=== PATIENT | male | born 1945 | race African-American/Black ===

== ENCOUNTER 2018-05-20 12:42 | Observation (INO) ==
--- NOTE | 2018-05-20 14:02 | ED ---
HPI General Chief complaint: Psychiatric Symptoms Stated complaint: Psych eval / [facility]O / [facility] transport Time Seen by Provider: 05/20/18 13:54 History of Present Illness HPI narrative: This is a 72-year-old male with reported history of seizures, CHF , CVA, diabetes, presents under a Silva act initiated by the police department. The patient reports that his in March. Since then he has been having trouble coping with this. He has been having depression. He feels that he has no other talk to. Today he called the crisis hotline through his insurance company and he was eventually placed under Silva act. The patient is denying any specific suicidal ideation however according to the Silva act plan he said something about having thoughts of jumping into a pool or jumping in front of a car. Symptoms are moderate, duration 2 months, aggravated by the of his . Denies drug or alcohol use. He has no other complaints at this time. Related Data Home Medications Medication Instructions Recorded Confirmed alprazolam [Xanax] 0.25 mg PO TID PRN 05/20/18 05/20/18 atorvastatin [Lipitor] 40 mg PO QPM 05/20/18 05/20/18 bupropion HCl [Wellbutrin XL] 150 mg PO QAM 05/20/18 05/20/18 buspirone 7.5 mg PO TID 05/20/18 05/20/18 gabapentin 300 mg PO HS 05/20/18 05/20/18 insulin detemir U-100 [Levemir 17 unit SUBCUT BID 05/20/18 05/20/18 FlexTouch U-100 Insuln] metoprolol tartrate 25 mg PO BID 05/20/18 05/20/18 pantoprazole 40 mg PO DAILY 05/20/18 05/20/18 phenytoin [Dilantin Infatabs] 100 mg PO TID 05/20/18 05/20/18 sitagliptin [Januvia] 100 mg PO DAILY 05/20/18 05/20/18 tizanidine 4 mg PO TID 05/20/18 05/20/18 Allergies Allergy/AdvReac Type Severity Reaction Status Date / Time No Known Allergies Allergy Verified 05/20/18 12:52 Review of Systems ROS: all other systems reviewed are negative [facility]LY [facility], [facility] Medical History Medical History CHF (congestive heart failure) (Acute) COPD (chronic obstructive pulmonary disease) (Acute) CVA (cerebral vascular accident) (Acute) Diabetes (Acute) Esophageal stricture (Acute) Hypertension (Acute) Myocardial infarction (Acute) Seizure disorder (Acute) Surgical History Surgical History History of appendectomy (Acute) Hx of hand surgery (Acute) Social History Social History Smoking Status: Never smoker How Often Do You Have a Drink Containing Alcohol: Never Recent Travel in [facility] within the Last 8 Weeks: No Recent Out of Country Travel within the Last 8 Weeks: No Exam Narrative Exam Narrative: GENERAL: Well-developed well-nourished male in no acute distress SKIN: Warm and dry. HEAD: Atraumatic. Normocephalic. EYES: Pupils equal and round. No scleral icterus. No injection or drainage. ENT: No nasal bleeding or discharge. Mucous membranes pink and moist. NECK: Trachea midline. No JVD. CARDIOVASCULAR: Regular rate and rhythm. No murmur appreciated. RESPIRATORY: No accessory muscle use. Clear to auscultation. Breath sounds equal bilaterally. GASTROINTESTINAL: Abdomen soft, non-tender, nondistended. Hepatic and splenic margins not palpable. MUSCULOSKELETAL: No obvious deformities. No clubbing. No cyanosis. No edema. NEUROLOGICAL: Awake and alert. No obvious cranial nerve deficits. Motor grossly within normal limits. Normal speech. PSYCHIATRIC: depressed mood Course Initial Documented Vital Signs Temperature 98.2 F 05/20/18 12:53 Pulse Rate 80 05/20/18 12:53 Respiratory Rate 18 05/20/18 12:53 Blood Pressure 144/82 H 05/20/18 12:53 Pulse Oximetry 97 05/20/18 12:53 Last Documented Vital Signs Temperature 98.2 F 05/20/18 12:53 Pulse Rate 76 05/20/18 14:08 Respiratory Rate 18 05/20/18 14:08 Blood Pressure 130/76 05/20/18 14:08 Pulse Oximetry 98 05/20/18 14:08 Medical Decision Making [facility] Narrative Medical decision making narrative: This is a 72-year-old male who presents under Silva act for evaluation of depression and suicidal thoughts. Mental health screening discussed with the patient. Psychiatric screen ordered. Lab work is been reviewed. The Dilantin level is elevated at 31.0. The patient reports that his primary care physician Dr. Paige recently increased his Dilantin level from 200 mg a day to 300 mg a day. He took 300 mg this morning. He denies any ingestion and a self-harm attempt. Dilantin level will be rechecked in 4 hours. The repeat Dilantin level has trended up to 36. Therefore poison control will be notified by nursing staff, an EKG was ordered, the patient was admitted to the hospitalist for observation. Medical Screen Exam Complete: Yes Emergency Medical Condition: Yes Differential Diagnosis Differential Diagnosis: Major depressive disorder, adjustment reaction, acute psychosis, depressive disorder not otherwise specified Lab Data Result diagrams: 05/20/18 13:10 05/20/18 13:10 Lab Results 05/20/18 05/20/18 05/20/18 Range/Units 13:10 13:10 13:10 WBC 8.9 (4.0-11.0) th/mm3 RBC 4.66 (4.50-5.90) mil/mm3 Hgb 13.9 (13.0-17.0) gm/dL Hct 42.4 (39.0-51.0) % MCV 90.9 (80.0-100.0) fL MCH 29.8 (27.0-34.0) pg MCHC 32.8 (32.0-36.0) % RDW 14.5 (11.6-17.2) % Plt Count 270 (150-450) th/mm3 MPV 7.3 (7.0-11.0) fL Neut % (Auto) 60.8 (16.0-70.0) % Lymph % (Auto) 28.6 (9.0-44.0) % Early % (Auto) 8.4 H (0.0-8.0) % Eos % (Auto) 1.9 (0.0-4.0) % Baso % (Auto) 0.3 (0.0-2.0) % Neut # (Auto) 5.4 (1.8-7.7) th/mm3 Lymph # (Auto) 2.5 (1.0-4.8) th/mm3 Early # (Auto) 0.7 (0.0-0.9) th/mm3 Eos # (Auto) 0.2 (0.0-0.4) th/mm3 Baso # (Auto) 0.0 (0.0-0.2) th/mm3 WBC Differential . Differential Comment Auto diff final PT 10.7 (9.8-11.6) sec INR 1.1 Ratio Sodium 136 (136-145) meq/L Potassium 5.1 (3.5-5.1) meq/L Chloride 101 (98-107) meq/L Carbon Dioxide 27.8 (21.0-32.0) meq/L Anion Gap 7 (5-15) meq/L BUN 19 H (7-18) mg/dL Creatinine 1.15 (0.60-1.30) mg/dL Estimated GFR 62 L (>89) mL/min Random Glucose 161 H (74-106) mg/dL Calcium 9.5 (8.5-10.1) mg/dL Magnesium 2.0 (1.5-2.5) mg/dL Total Bilirubin 0.3 (0.2-1.0) mg/dL AST 23 (15-37) U/L ALT 31 (12-78) U/L Alkaline Phosphatase 298 H (45-117) U/L Total Protein 8.8 H (6.4-8.2) g/dL Albumin 3.9 (3.4-5.0) g/dL TSH 1.090 (0.358-3.740) uIU/mL Salicylates (2.8-20.0) mg/dL Urine Opiates Screen (Neg) Acetaminophen (10.0-30.0) mcg/mL Ur Barbiturates Screen (Neg) Phenytoin 31.0 H* (10.0-20.0) mcg/mL Ur Amphetamines Screen (Neg) U Benzodiazepines Scrn (Neg) Urine Cocaine Screen (Neg) U Cannabinoids Screen (Neg) Serum Alcohol Less than 3 (0-5) mg/dL 05/20/18 05/20/18 05/20/18 Range/Units 13:10 13:10 13:40 WBC (4.0-11.0) th/mm3 RBC (4.50-5.90) mil/mm3 Hgb (13.0-17.0) gm/dL Hct (39.0-51.0) % MCV (80.0-100.0) fL MCH (27.0-34.0) pg MCHC (32.0-36.0) % RDW (11.6-17.2) % Plt Count (150-450) th/mm3 MPV (7.0-11.0) fL Neut % (Auto) (16.0-70.0) % Lymph % (Auto) (9.0-44.0) % Early % (Auto) (0.0-8.0) % Eos % (Auto) (0.0-4.0) % Baso % (Auto) (0.0-2.0) % Neut # (Auto) (1.8-7.7) th/mm3 Lymph # (Auto) (1.0-4.8) th/mm3 Early # (Auto) (0.0-0.9) th/mm3 Eos # (Auto) (0.0-0.4) th/mm3 Baso # (Auto) (0.0-0.2) th/mm3 WBC Differential Differential Comment PT (9.8-11.6) sec INR Ratio Sodium (136-145) meq/L Potassium (3.5-5.1) meq/L Chloride (98-107) meq/L Carbon Dioxide (21.0-32.0) meq/L Anion Gap (5-15) meq/L BUN (7-18) mg/dL Creatinine (0.60-1.30) mg/dL Estimated GFR (>89) mL/min Random Glucose (74-106) mg/dL Calcium (8.5-10.1) mg/dL Magnesium (1.5-2.5) mg/dL Total Bilirubin (0.2-1.0) mg/dL AST (15-37) U/L ALT (12-78) U/L Alkaline Phosphatase (45-117) U/L Total Protein (6.4-8.2) g/dL Albumin (3.4-5.0) g/dL TSH (0.358-3.740) uIU/mL Salicylates Less than 1.7 L (2.8-20.0) mg/dL Urine Opiates Screen Neg (Neg) Acetaminophen Less than 2.0 L (10.0-30.0) mcg/mL Ur Barbiturates Screen Neg (Neg) Phenytoin (10.0-20.0) mcg/mL Ur Amphetamines Screen Neg (Neg) U Benzodiazepines Scrn Neg (Neg) Urine Cocaine Screen Neg (Neg) U Cannabinoids Screen Neg (Neg) Serum Alcohol (0-5) mg/dL 05/20/18 Range/Units 17:47 WBC (4.0-11.0) th/mm3 RBC (4.50-5.90) mil/mm3 Hgb (13.0-17.0) gm/dL Hct (39.0-51.0) % MCV (80.0-100.0) fL MCH (27.0-34.0) pg MCHC (32.0-36.0) % RDW (11.6-17.2) % Plt Count (150-450) th/mm3 MPV (7.0-11.0) fL Neut % (Auto) (16.0-70.0) % Lymph % (Auto) (9.0-44.0) % Early % (Auto) (0.0-8.0) % Eos % (Auto) (0.0-4.0) % Baso % (Auto) (0.0-2.0) % Neut # (Auto) (1.8-7.7) th/mm3 Lymph # (Auto) (1.0-4.8) th/mm3 Early # (Auto) (0.0-0.9) th/mm3 Eos # (Auto) (0.0-0.4) th/mm3 Baso # (Auto) (0.0-0.2) th/mm3 WBC Differential Differential Comment PT (9.8-11.6) sec INR Ratio Sodium (136-145) meq/L Potassium (3.5-5.1) meq/L Chloride (98-107) meq/L Carbon Dioxide (21.0-32.0) meq/L Anion Gap (5-15) meq/L BUN (7-18) mg/dL Creatinine (0.60-1.30) mg/dL Estimated GFR (>89) mL/min Random Glucose (74-106) mg/dL Calcium (8.5-10.1) mg/dL Magnesium (1.5-2.5) mg/dL Total Bilirubin (0.2-1.0) mg/dL AST (15-37) U/L ALT (12-78) U/L Alkaline Phosphatase (45-117) U/L Total Protein (6.4-8.2) g/dL Albumin (3.4-5.0) g/dL TSH (0.358-3.740) uIU/mL Salicylates (2.8-20.0) mg/dL Urine Opiates Screen (Neg) Acetaminophen (10.0-30.0) mcg/mL Ur Barbiturates Screen (Neg) Phenytoin 36.5 H* (10.0-20.0) mcg/mL Ur Amphetamines Screen (Neg) U Benzodiazepines Scrn (Neg) Urine Cocaine Screen (Neg) U Cannabinoids Screen (Neg) Serum Alcohol (0-5) mg/dL Discharge Plan Discharge Disposition Patient Disposition: ED Admit(ED Internal Use Only) Discharge Condition Condition: Stable Discharge Order Discharge Orders: ED Use Only Admit Order (Routine); Ordered 05/20/18 Ordered By: Dariusz Beckford Discharge Details Diagnosis: Dilantin toxicity Physicians Team ED Provider: Dee Dee Yates ED Midlevel Provider: Dariusz Beckford Primary Care Provider: UNKNOWN, Rxs /Orders / Referrals /Forms Prescriptions: No Action atorvastatin [Lipitor] 40 mg Tablet 40 mg PO QPM RF: 0 tizanidine 4 mg Tablet 4 mg PO TID RF: 0 phenytoin [Dilantin Infatabs] 50 mg Tablet,Chewable 100 mg PO TID RF: 0 alprazolam [Xanax] 0.25 mg Tablet 0.25 mg PO TID PRN (Reason: Anxiety) RF: 0 pantoprazole 40 mg Tablet,Delayed Release (Dr/Ec) 40 mg PO DAILY RF: 0 gabapentin 300 mg Capsule 300 mg PO HS RF: 0 buspirone 7.5 mg Tablet 7.5 mg PO TID RF: 0 bupropion HCl [Wellbutrin XL] 150 mg Tablet Extended Release 24 Hr 150 mg PO QAM RF: 0 metoprolol tartrate 25 mg Tablet 25 mg PO BID RF: 0 insulin detemir U-100 [Levemir FlexTouch U-100 Insuln] 100 unit/mL (3 mL) Insulin Pen 17 unit SUBCUT BID RF: 0 sitagliptin [Januvia] 100 mg Tablet 100 mg PO DAILY RF: 0 Discharge Interventions Interventions: Vital Signs Last Done: 05/20/18 14:08 Status ED Status: With Doctor
[2018-05-20 14:19] LABS: Baso % (Auto) 0.3 % (0.0-2.0); Eos # (Auto) 0.2 th/mm3 (0.0-0.4); Eos % (Auto) 1.9 % (0.0-4.0); Hematocrit 42.4 % (39.0-51.0); Hemoglobin 13.9 gm/dL (13.0-17.0); Lymph # (Auto) 2.5 th/mm3 (1.0-4.8); Lymph % (Auto) 28.6 % (9.0-44.0); Mean Corpuscular HGB Conc 32.8 % (32.0-36.0); Mean Corpuscular Hemoglobin 29.8 pg (27.0-34.0); Mean Corpuscular Volume 90.9 fL (80.0-100.0); Mean Platelet Volume 7.3 fL (7.0-11.0); Mono # (Auto) 0.7 th/mm3 (0.0-0.9); Mono % (Auto) 8.4 % (0.0-8.0); Neut # (Auto) 5.4 th/mm3 (1.8-7.7); Neut % (Auto) 60.8 % (16.0-70.0); Platelet Count 270 th/mm3 (150-450); Red Blood Count 4.66 mil/mm3 (4.50-5.90); Red Cell Distribution Width 14.5 % (11.6-17.2); White Blood Count 8.9 th/mm3 (4.0-11.0)
[2018-05-20 14:27] LABS: INR 1.1 Ratio; Prothrombin Time 10.7 sec (9.8-11.6)
[2018-05-20 14:39] LABS: Alanine Aminotransferase 31 U/L (12-78); Albumin 3.9 g/dL (3.4-5.0); Anion Gap 7 meq/L (5-15); Aspartate Aminotransferase 23 U/L (15-37); Blood Urea Nitrogen 19 mg/dL (7-18); Calcium 9.5 mg/dL (8.5-10.1); Carbon Dioxide 27.8 meq/L (21.0-32.0); Chloride 101 meq/L (98-107); Glomerular Filtration Rate 62 mL/min (>89); Glucose,Random 161 mg/dL (74-106); Potassium 5.1 meq/L (3.5-5.1); Sodium 136 meq/L (136-145)
[2018-05-20 14:45] LABS: Amphetamine Screen,Urine Neg (Neg); Barbiturate Screen,Urine Neg (Neg); Cannabinoid Screen,Urine Neg (Neg); Cocaine Screen,Urine Neg (Neg)
[2018-05-20 14:48] LABS: Alkaline Phosphatase 298 U/L (45-117); Total Protein 8.8 g/dL (6.4-8.2)
[2018-05-20 14:52] LABS: Opiate Screen,Urine Neg (Neg)
[2018-05-20] MEDS ORDERED: Sodium Chloride 0.9% 2 ML Flush PRN IV.FLUSH (18:44)
[2018-05-20] MEDS: Sod Chloride 0.9% Inj 1,000 ML IV.CONT SCH (20:02)
[2018-05-20] MEDS ORDERED: Dextrose 50% in Water 50 ML Vial IV.PUSH PRN (20:28)
--- NOTE | 2018-05-20 20:36 | P.HPIM ---
History of Present Illness Primary Care Physician: UNKNOWN 72-year-old male with a past medical history significant for seizure disorder on Dilantin, diabetes mellitus, hypertension, congestive heart failure, coronary artery disease, hyperlipidemia and history of CVA presents to the emergency department under Silva act for the evaluation of suicidal ideation. The patient reports that earlier today he was feeling depressed and called the crisis line telling them that he wanted to jump in front of a truck. He reports that his recently and he has been struggling with depression since that time. He also states that he takes Dilantin 3 times a day and recently his primary care provider increased him from 200-300 mg 3 times daily. His Dilantin level is currently elevated. He denies any intentional overdose. No chest pain or shortness of breath. No abdominal pain. No nausea/ vomiting/diarrhea. No fever/chills. No focal neurologic deficits. Review of Systems Review of Systems: all other systems reviewed are negative [facility] Medical History Medical History CHF (congestive heart failure) (Acute) COPD (chronic obstructive pulmonary disease) (Acute) CVA (cerebral vascular accident) (Acute) Diabetes (Acute) Esophageal stricture (Acute) Hyperlipidemia (Acute) Hypertension (Acute) Myocardial infarction (Acute) Seizure disorder (Acute) Surgical History Surgical History History of appendectomy (Acute) History of cardiac catheterization (Acute) Hx of hand surgery (Acute) Family History Family History Other Diabetes mellitus Social History Social History Smoking Status: Never smoker How Often Do You Have a Drink Containing Alcohol: Never Recent Travel in [facility] within the Last 8 Weeks: No Recent Out of Country Travel within the Last 8 Weeks: No Immunization History Tetanus Immunization: Unsure Medications and Allergies Allergies Allergy/AdvReac Type Severity Reaction Status Date / Time No Known Allergies Allergy Verified 05/20/18 12:52 Home Medications Medication Instructions Recorded Confirmed Type alprazolam [Xanax] 0.25 mg PO TID PRN 05/20/18 05/20/18 History atorvastatin [Lipitor] 40 mg PO QPM 05/20/18 05/20/18 History bupropion HCl [Wellbutrin XL] 150 mg PO QAM 05/20/18 05/20/18 History buspirone 7.5 mg PO TID 05/20/18 05/20/18 History gabapentin 300 mg PO HS 05/20/18 05/20/18 History insulin detemir U-100 [Levemir 17 unit SUBCUT BID 05/20/18 05/20/18 History FlexTouch U-100 Insuln] metoprolol tartrate 25 mg PO BID 05/20/18 05/20/18 History pantoprazole 40 mg PO DAILY 05/20/18 05/20/18 History phenytoin [Dilantin Infatabs] 100 mg PO TID 05/20/18 05/20/18 History sitagliptin [Januvia] 100 mg PO DAILY 05/20/18 05/20/18 History tizanidine 4 mg PO TID 05/20/18 05/20/18 History Active Medications: Active Medications Atorvastatin Calcium (Lipitor) 40 mg PO QPM [facility] Bupropion HCl (Wellbutrin Xl) 150 mg PO QAM [facility] Dextrose (D50w Vial) 50 ml IV.PUSH UNSCH PRN PRN Reason: PER HYPOGLYCEMIA PROTOCOL Gabapentin (Neurontin) 300 mg PO HS [facility] Glucagon (Glucagon Inj) 1 mg OTHER PRN PRN PRN Reason: for Hypoglycemia Protocol Sodium Chloride (Ns Inj) 1,000 mls @ 100 mls/hr IV.CONT .Q10H [facility] Last Admin: 05/20/18 20:02 Dose: 100 mls/hr Insulin Aspart (Novolog Insulin Correctional Sugar Inj) 0 unit SQ ACHS AND 3AM [facility]; Protocol Metoprolol Tartrate (Lopressor) 25 mg PO BID [facility] Non-Formulary Medication (Buspirone [Buspirone]) 7.5 mg PO TID [facility] Non-Formulary Medication (Insulin Detemir U-100 [Levemir Flextouch U-100 Insuln] ) 17 unit SQ BID [facility] Pantoprazole Sodium (Protonix) 40 mg PO DAILY [facility] Sodium Chloride (Ns Flush) 2 ml IV.FLUSH BID [facility] Sodium Chloride (Ns Flush) 2 ml IV.FLUSH PRN PRN PRN Reason: FLUSH AFTER USING IV ACCESS Physical Exam Vital signs: Vital Signs 05/20/18 12:53 05/20/18 14:08 05/20/18 19:42 Temperature 98.2 F Pulse Rate 80 76 69 Respiratory Rate 18 18 18 Blood Pressure 144/82 H 130/76 157/107 H Pulse Oximetry 97 98 99 Intake & Output 05/20/18 05/20/18 05/21/18 06:59 18:59 06:59 Weight 74.843 kg Narrative: Gen.: No acute distress Head: Normocephalic. Atraumatic. EENT: Pupils equal round and reactive to light. Nose without drainage. Airway intact. Throat without injection. Cardiovascular: Regular rate and rhythm. No murmurs, rubs or gallops. Respiratory: Lungs clear to auscultation bilaterally. No wheezes or rhonchi. Abdomen: Soft, nontender, nondistended. No peritoneal signs. Musculoskeletal: No gross deformities. No edema. Skin: No obvious rashes or erythema. Neuro: Sensory and motor grossly intact. Cranial nerves II through XII grossly intact. Psych: Endorses depression but denies any suicidal/homicidal ideation at this time Results Labs CBC & Chem 7: 05/20/18 13:10 05/20/18 13:10 Caprini VTE Risk Assessment Caprini VTE Risk Assessment: Moderate/High Risk (score >= 2) Caprini Risk Assessment Model: Point Value = 1 Point Value = 2 Point Value = 3 Point Value = 5 Age 41-60 Minor surgery BMI > 25 kg/m2 Swollen legs Varicose veins or History of unexplained or recurrent spontaneous Oral contraceptives or hormone replacement Sepsis (< 1 month) Serious lung disease, including pneumonia (< 1 month) Abnormal pulmonary function Acute myocardial infarction Congestive heart failure (< 1 month) History of inflammatory bowel disease Medical patient at bed rest Age 61-74 Arthroscopic surgery Major open surgery (> 45 min) Laparoscopic surgery (> 45 min) Malignancy Confined to bed (> 72 hours) Immobilizing plaster cast Central venous access Age >= 75 History of VTE Family history of VTE Factor V Leiden Prothrombin [id number] Lupus anticoagulant Anticardiolipin antibodies Elevated serum homocysteine Heparin-induced thrombocytopenia Other congenital or acquired thrombophilia Stroke (< 1 month) Elective arthroplasty Hip, pelvis, or leg fracture Acute spinal cord injury (< 1 month) Prophylaxis Regimen: Total Risk Factor Score Risk Level Prophylaxis Regimen 0-1 Low Early ambulation 2 Moderate Order ONE of the following: *Sequential Compression Device (SCD) *Heparin 5000 units SQ BID 3-4 Higher Order ONE of the following medications: *Heparin 5000 units SQ TID *Enoxaparin/Lovenox 40 mg SQ daily (WT < 150 kg, CrCl > 30 mL/min) *Enoxaparin/Lovenox 30 mg SQ daily (WT < 150 kg, CrCl > 10-29 mL/min) *Enoxaparin/Lovenox 30 mg SQ BID (WT < 150 kg, CrCl > 30 mL/min) AND/OR *Sequential Compression Device (SCD) 5 or more Highest Order ONE of the following medications: *Heparin 5000 units SQ TID (Preferred with Epidurals) *Enoxaparin/Lovenox 40 mg SQ daily (WT < 150 kg, CrCl > 30 mL/min) *Enoxaparin/Lovenox 30 mg SQ daily (WT < 150 kg, CrCl > 10-29 mL/min) *Enoxaparin/Lovenox 30 mg SQ BID (WT < 150 kg, CrCl > 30 mL/min) AND *Sequential Compression Device (SCD) Assessment and Plan Plan Assessment/plan: 1. Dilantin toxicity Initial Dilantin level 31.0, repeat 36.5 Patient reports increase in Dilantin dose on Saturday by his PCP Denies intentional overdose Poison control contacted, recommend repeat Dilantin level every 4 hours until peak and 2 declining values Supportive care 2. Suicidal ideation Patient placed under Silva act Psychiatry consulted, appreciate assistance 3. Diabetes mellitus Continue long-acting insulin Sliding scale insulin Monitor blood glucose 4. Hypertension/hyperlipidemia/CAD/CHF Continue home medications FEN Diabetic diet Electrolytes: Monitor and replete as needed Heparin
[2018-05-20] MEDS ORDERED: INSULIN DETEMIR SQ SCH (21:00)
[2018-05-20] MEDS: Heparin - SQ 10,000 UNITS/ML Vial SQ SCH (22:01)
[2018-05-20] MEDS: Gabapentin 300 MG Capsule PO SCH (22:02)
[2018-05-20] MEDS: Insulin Detemir Inj 1,000 UNIT/10 ML Vial SQ SCH (22:02)
[2018-05-20] MEDS: Metoprolol Tartrate 25 MG Tablet PO SCH (22:02)
[2018-05-20] MEDS: Insulin NovoLOG Aspart Correctional Sugar Inj SQ SCH (22:02)
[2018-05-20] MEDS: Sodium Chloride 0.9% 2 ML Flush BID IV.FLUSH SCH (22:03)
[2018-05-20] MEDS: buPROPion 150 MG XL 24 HR Tablet PO SCH (22:59)
[2018-05-21 00:35] LABS: Bacteria,Urine Rare /hpf; Bilirubin,Urine Negative (Negative); Clarity,Urine Clear (Clear); Color,Urine Straw (Yellw/Straw); Glucose,Urine (UA) Negative (Negative); Leukocyte Esterase,Urine Negative (Negative); Nitrite,Urine Negative (Negative); Specific Gravity,Urine 1.005 (1.002-1.035); Squamous Epithelial Cell,Urine <1 /hpf (0-5)
[2018-05-21] MEDS: Insulin NovoLOG Aspart Correctional Sugar Inj SQ SCH ×5 (04:18→23:36)
[2018-05-21] MEDS: Sod Chloride 0.9% Inj 1,000 ML IV.CONT SCH ×2 (06:24→14:53)
--- NOTE | 2018-05-21 08:01 | P.PNIM ---
Subjective Interval history: Follow-up for Dilantin toxicity, depression with suicidal ideations. Patient explains that he is here because he has been depressed since his a few months ago with lung cancer. The patient also reports that he has been having breakthrough seizures at home. He states he will wake up with his tongue bitten and with urinary incontinence. He states recently his Dilantin was increased from 2 tablets twice a day to 3 times a day because his Dilantin level is low. He states he was previously on phenobarbital as well, however this was discontinued awhile ago. He states he previously followed with a neurologist in [place], however now just sees his PCP. He currently denies any headache or lightheadedness. Denies any chest pain, palpitations, shortness of breath. Denies any other medical complaints at this time. Physical Exam Vital signs: Vital Signs 05/20/18 12:53 05/20/18 14:08 05/20/18 19:42 Temperature 98.2 F Pulse Rate 80 76 69 Respiratory Rate 18 18 18 Blood Pressure 144/82 H 130/76 157/107 H Pulse Oximetry 97 98 99 05/20/18 22:49 05/21/18 00:00 05/21/18 05:13 Temperature 98.6 F 98.2 F Pulse Rate 66 71 85 Respiratory Rate 18 20 20 Blood Pressure 167/75 H 188/95 H 139/86 Pulse Oximetry 98 94 L 97 05/21/18 07:51 Temperature 97.9 F Pulse Rate 78 Respiratory Rate 16 Blood Pressure 149/83 H Pulse Oximetry 100 Intake & Output 05/20/18 05/21/18 05/21/18 18:59 06:59 18:59 Intake Total 1000 / 1000 Output Total 725 / 725 Balance 275 / 275 Weight 74.843 kg 74.84 kg Intake: IV 1000 / 1000 NS Inj 1,000 ML @ 100 mls/hr IV 1000 / 1000 .CONT .Q10H [id number] Rx#:[id number] Output: Urine 725 / 725 Other: Date of Last Bowel Movement 05/29/19 Weight On Admission 74.84 kg Narrative: GENERAL: Well-nourished, well-developed pleasant elderly male patient in [facility]. SKIN: Warm and dry. No rash. HEENT: Atraumatic. Pupils equal and round. Mucous membranes pink and moist. No obvious tongue laceration, however possible abrasions at right lateral tongue. CARDIOVASCULAR: Regular rate and rhythm. No murmur appreciated. RESPIRATORY: No accessory muscle use. Clear to auscultation. Breath sounds equal bilaterally. GASTROINTESTINAL: Abdomen soft, non-tender, nondistended. Normoactive bowel sounds x4. MUSCULOSKELETAL: No obvious deformities. Extremities without clubbing, cyanosis , or edema. NEUROLOGICAL: Awake and alert. No obvious cranial nerve deficits. Motor grossly within normal limits. Moving all extremities spontaneously. Normal speech. Results Labs CBC & Chem 7: 05/20/18 13:10 05/21/18 07:30 Assessment and Plan Plan 72-year-old male with a past medical history significant for seizure disorder on Dilantin, diabetes mellitus, hypertension, congestive heart failure, coronary artery disease, hyperlipidemia and history of CVA presents to the emergency department under [employer] act for the evaluation of suicidal ideation. Dilantin toxicity: acute. Patient reports increase in Dilantin dose on Saturday by his PCP. Denies intentional overdose. -Initial Dilantin level 31.0, repeat 36.5 -Poison control contacted, recommend repeat Dilantin level every 4 hours until peak and 2 declining values -Monitor on telemetry -Supportive care Suicidal ideation: patient endorses depression, worse recently with loss of -Patient placed under Silva act -Psychiatry consulted, appreciate assistance, recommends admission to psychiatry when medically stable Breakthrough Seizures: patient reporting recent breakthrough seizures -dilantin on hold for now due to toxicity as above -seizure precautions -consult neurology Diabetes mellitus: Chronic -Continue long-acting insulin -Sliding scale insulin -Monitor blood glucose Hypertension/hyperlipidemia/CAD/CHF: Chronic, stable -Continue home medications as appropriate -Monitor BP, adjust antihypertensives as needed DVT Prophylaxis: Heparin sq Attending Attestation patient was seen and examined. resting comfortably with no distress. no dizziness or headache. dilantin level is still elevated. continue to monitor the dilantin level. psych consulted. rest of assessment and plan as noted above. Progress Note: Quality VTE Deep Vein Thrombosis/Pulmonary Embolism Present on Admission: Yes
[2018-05-21 08:53] LABS: Calcium 9.7 mg/dL (8.5-10.1); Carbon Dioxide 28.4 meq/L (21.0-32.0); Potassium 4.3 meq/L (3.5-5.1)
[2018-05-21] MEDS ORDERED: BUSPIRONE 7.5 MG PO SCH (09:00)
[2018-05-21] MEDS: Sodium Chloride 0.9% 2 ML Flush BID IV.FLUSH SCH ×2 (09:02→23:36)
[2018-05-21] MEDS: Insulin Detemir Inj 1,000 UNIT/10 ML Vial SQ SCH ×2 (09:10→21:04)
[2018-05-21] MEDS: Metoprolol Tartrate 25 MG Tablet PO SCH ×2 (09:10→21:03)
[2018-05-21] MEDS: Heparin - SQ 10,000 UNITS/ML Vial SQ SCH ×2 (09:10→21:05)
[2018-05-21] MEDS: buPROPion 150 MG XL 24 HR Tablet PO SCH (09:12)
--- NOTE | 2018-05-21 12:26 | P.CONPSY ---
Provisional Diagnosis Admission Date: May 20, 2018 18:47 [place] I.: Adjustment disorder with depressed mood, rule out major depressive disorder [place] II.: Deferred History of Present Illness Service: ER Primary Care Provider: UNKNOWN History of Present Illness: The patient is a 72-year-old man, , father of 3 kids, domiciled with his son in [place], no previous psychiatric history, no pre-suicide attempts, no previous psychiatric hospitalizations, denies the use of illegal drugs and alcohol, medical history of seizure disorder on Dilantin, diabetes mellitus, hypertension, congestive heart failure, coronary artery disease, hyperlipidemia and history of CVA, who presents to the emergency department under Silva act for the evaluation of suicidal ideation. The patient reports that earlier today he was feeling depressed and called the crisis line telling them that he wanted to jump in front of a truck or to throw himself in his house pool. He reports that his recently and he has been struggling with depression since that time. He also states that he takes Dilantin 3 times a day and recently his primary care provider increased him from 200-300 mg 3 times daily. His Dilantin level is currently elevated. He denies any intentional overdose. Initial Dilantin level 31.0, repeat 36.5. The patient was seen today for psychiatric reevaluation. Chart was reviewed. On my psychiatric evaluation today the patient reports that he feels much better today. However, he says that he has been very depressed since his 2 months ago. He says that he has been struggling with increased sense of sadness , poor self-esteem, difficulty sleeping at night, suicidal thoughts, daily tears , generalized pessimism, difficulties related with other people. At this moment the patient denies suicidal ideation, he says that yesterday he was just upset and acutely depressed, but today he has realized that he does not want to . Patient reports that maybe is better for him to be admitted in psychiatry and start treatment for depression. The patient is fully oriented x3, without attention deficit, no gross cognitive impairment. He is mostly logical, coherent and relevant. No agitation, no aggressive behavior present. PPHx: No psychiatric history, no pre-suicide attempts, no previous hospitalization PMHx: seizure disorder on Dilantin, diabetes mellitus, hypertension, congestive heart failure, coronary artery disease, hyperlipidemia and history of CVA, Substance Hx: Denies the use of illegal drugs or alcohol Family Hx: No family psychiatric history Social Hx: Born and raised in [place], he lives with his son in [place], , unemployed, supported by social security Review of Systems All other systems reviewed negative except as stated in HPI Constitutional: Reports lack of energy, Reports weight loss, Denies anorexia, Denies body ache(s), Denies chills, Denies daytime sleepiness, Denies excessive sweating, Denies fatigue, Denies fever(s), Denies headache(s), Denies increased appetite, Denies malaise, Denies night sweats, Denies weakness, Denies weight gain, Denies other Cardiovascular: Denies chest pain, Denies chest pain at rest, Denies chest pain with activity, Denies excessive sweating, Denies fainting, Denies fast heart rate, Denies foot swelling, Denies generalized swelling, Denies irregular heart rhythm, Denies leg pain with activity, Denies leg sores, Denies leg swelling, Denies lightheadedness, Denies radiating jaw, neck or arm pain, Denies rapid, pounding, or irregular heartbeat, Denies shortness of breath, Denies shortness of breath with activity, Denies shortness of breath when lying down, Denies shortness of breath causing sudden awakening, Denies slow heart rate, Denies other Respiratory: Denies change in phlegm color, Denies chest congestion, Denies cough, Denies coughing up blood, Denies excessive phlegm production, Denies pain on inspiration, Denies pain with cough, Denies shortness of breath, Denies shortness of breath with activity, Denies snoring, Denies stridor, Denies wheezing, Denies other Gastrointestinal: Denies abdominal pain, Denies belching, Denies black, tarry stools, Denies bloating, Denies bright, red blood in stools, Denies change in bowel habits, Denies constant urge to pass stool, Denies change in stools, Denies coffee ground vomit, Denies constipation, Denies cramping, Denies difficulty swallowing, Denies excessive passing of gas, Denies feeling full early, Denies heartburn, Denies incontinent of stools, Denies loose stools, Denies nausea, Denies pain with swallowing, Denies vomiting, Denies vomiting blood, Denies other Genitourinary: Denies blood in semen, Denies blood in urine, Denies decreased urination, Denies difficulty urinating, Denies difficulty with ejaculations, Denies erectile dysfunction, Denies genital lesions, Denies genital pain, Denies painful urination, Denies side pain, Denies frequent nighttime urination , Denies painful ejaculations, Denies penile discharge, Denies scrotal swelling , Denies testicle lump, Denies testicle pain, Denies urinary frequency, Denies urinary hesitancy, Denies urinary incontinence, Denies urinary urgency, Denies other Musculoskeletal: Denies abnormal walking, Denies back pain, Denies body aches, Denies decreased muscle mass, Denies deformity, Denies joint pain, Denies joint swelling, Denies limited joint movement, Denies loss of height, Denies muscle cramps, Denies muscle weakness, Denies neck pain, Denies numbness, Denies radiating pain into limb, Denies stiffness, Denies tingling, Denies other Neurologic: Denies abnormal hearing, Denies abnormal movements, Denies abnormal speech, Denies abnormal walking, Denies behavioral changes, Denies burning sensations, Denies confusion, Denies dizziness, Denies fainting, Denies frequent falls, Denies headache(s), Denies lack of coordination, Denies localized weakness, Denies loss of vision, Denies memory loss, Denies numbness, Denies other visual disturbances, Denies radiating pain, Denies restless legs, Denies convulsions, Denies seizure-like activity, Denies sensory deficit, Denies tingling, Denies tingling/numbness/burning sensations, Denies tremor(s), Denies unsteadiness, Denies weakness, Denies other Psychiatric: Reports depression, Reports hopelessness, Denies abnormal sleep pattern, Denies anxiety, Denies behavioral changes, Denies change in appetite, Denies change in sex drive, Denies confusion, Denies difficulty concentrating, Denies hearing things others do not hear, Denies irritability, Denies lack of enjoyment, Denies memory loss, Denies mood swings, Denies panic attacks, Denies paranoia, Denies seeing things others do not see, Denies sensing things others do not sense, Denies tactile hallucinations, Denies thoughts of hurting/killing others, Denies thoughts of hurting/killing yourself, Denies other PMFSH - History History Provided By: Patient - Medical History Medical History: Medical History (Last Updated 05/20/18 @ 20:33 by Sofia Jones MD) CHF (congestive heart failure) COPD (chronic obstructive pulmonary disease) CVA (cerebral vascular accident) Diabetes Esophageal stricture Hyperlipidemia Hypertension Myocardial infarction Seizure disorder - Surgical History Surgical History: Surgical History (Last Updated 05/20/18 @ 20:33 by Sofia Jones MD) History of appendectomy History of cardiac catheterization Hx of hand surgery - Family History Family History: Family History Other Diabetes mellitus - Tobacco History Second Hand Smoke Exposure: No Tobacco Use In Past 30 Days: No Smoking Status: Former smoker Tobacco Type: Cigarettes - Alcohol History How Often Do You Have a Drink Containing Alcohol: Never - Substance Use History Substance History: No History of Abuse - Travel History Recent Travel in the [place] Within the Last 8 Weeks: No Recent Travel Out of the Country Within the Last 8 Weeks: No - Immunization History Tetanus Immunization: Unsure Medications and Allergies Active Medications: Active Medications Atorvastatin Calcium (Lipitor) 40 mg PO QPM [facility] Bupropion HCl (Wellbutrin Xl) 150 mg PO DAILY [facility] Last Admin: 05/21/18 09:12 Dose: 150 mg Buspirone HCl (Buspar) 7.5 mg PO TID [facility] Last Admin: 05/21/18 09:10 Dose: 7.5 mg Dextrose (D50w Vial) 50 ml IV.PUSH UNSCH PRN PRN Reason: PER HYPOGLYCEMIA PROTOCOL Gabapentin (Neurontin) 300 mg PO HS [facility] Last Admin: 05/20/18 22:02 Dose: 300 mg Glucagon (Glucagon Inj) 1 mg OTHER PRN PRN PRN Reason: for Hypoglycemia Protocol Heparin Sodium (Porcine) (Heparin Inj) 5,000 units SQ Q12HR [facility] Last Admin: 05/21/18 09:10 Dose: 5,000 units Sodium Chloride (Ns Inj) 1,000 mls @ 100 mls/hr IV.CONT .Q10H [facility] Last Admin: 05/21/18 06:24 Dose: 100 mls/hr Insulin Aspart (Novolog Insulin Correctional Sugar Inj) 0 unit SQ ACHS AND 3AM [facility]; Protocol Last Admin: 05/21/18 09:02 Dose: Not Given Insulin Detemir (Levemir Inj) 17 unit SQ BID [facility] Last Admin: 05/21/18 09:10 Dose: 17 unit Metoprolol Tartrate (Lopressor) 25 mg PO BID [facility] Last Admin: 05/21/18 09:10 Dose: 25 mg Miscellaneous (Pill Splitter) 1 each OTHER UNSCH PRN PRN Reason: SEE LABEL COMMENTS Pantoprazole Sodium (Protonix) 40 mg PO DAILY [facility] Last Admin: 05/21/18 09:10 Dose: 40 mg Sodium Chloride (Ns Flush) 2 ml IV.FLUSH BID [facility] Last Admin: 05/21/18 09:02 Dose: Not Given Sodium Chloride (Ns Flush) 2 ml IV.FLUSH PRN PRN PRN Reason: FLUSH AFTER USING IV ACCESS Allergies Allergy/AdvReac Type Severity Reaction Status Date / Time No Known Allergies Allergy Verified 05/20/18 12:52 Home Medications Medication Instructions Recorded Confirmed Type alprazolam [Xanax] 0.25 mg PO TID PRN 05/20/18 05/20/18 History atorvastatin [Lipitor] 40 mg PO QPM 05/20/18 05/20/18 History bupropion HCl [Wellbutrin XL] 150 mg PO QAM 05/20/18 05/20/18 History buspirone 7.5 mg PO TID 05/20/18 05/20/18 History gabapentin 300 mg PO HS 05/20/18 05/20/18 History insulin detemir U-100 [Levemir 17 unit SUBCUT BID 05/20/18 05/20/18 History FlexTouch U-100 Insuln] metoprolol tartrate 25 mg PO BID 05/20/18 05/20/18 History pantoprazole 40 mg PO DAILY 05/20/18 05/20/18 History phenytoin [Dilantin Infatabs] 100 mg PO TID 05/20/18 05/20/18 History sitagliptin [Januvia] 100 mg PO DAILY 05/20/18 05/20/18 History tizanidine 4 mg PO TID 05/20/18 05/20/18 History Exam Vital signs: Vital Signs 05/20/18 12:53 05/20/18 14:08 05/20/18 19:42 Temperature 98.2 F Pulse Rate 80 76 69 Respiratory Rate 18 18 18 Blood Pressure 144/82 H 130/76 157/107 H Pulse Oximetry 97 98 99 05/20/18 22:49 05/21/18 00:00 05/21/18 05:13 Temperature 98.6 F 98.2 F Pulse Rate 66 71 85 Respiratory Rate Blood Pressure 167/75 H 188/95 H 139/86 Pulse Oximetry 98 94 L 97 05/21/18 07:51 Temperature 97.9 F Pulse Rate 78 Respiratory Rate 16 Blood Pressure 149/83 H Pulse Oximetry 100 Intake & Output 05/20/18 05/21/18 05/21/18 18:59 06:59 18:59 Intake Total 1000 / 1000 Output Total 725 / 725 Balance 275 / 275 Weight 74.843 kg 74.84 kg Intake: IV 1000 / 1000 NS Inj 1,000 ML @ 100 mls/hr IV 1000 / 1000 .CONT .Q10H [facility] Rx#:[id number] Output: Urine 725 / 725 Other: Date of Last Bowel Movement 05/29/19 05/20/18 Weight On Admission 74.84 kg Narrative: No tremors, no EPS, no psychomotor agitation or retardation, no withdrawal symptoms, - Constitutional no acute distress, mild distress - Routine HEENT Exam Head: Present: normocephalic, atraumatic Eye: Present: EOMI, PERRL ENT: Present: mucous membranes moist Mental Status Examination Appearance: Appropriate Consciousness: Alert Orientation: x4 Motor Activity: Normal gait Speech: Unremarkable Language: Adequate Fund of Knowledge: Adequate Attention and Concentration: Adequate Memory: Unremarkable Mood: Sad Affect: Sad Thought Process & Associations: Intact Thought Content: Appropriate Hallucination Type: None Delusion Type: None Suicidal Ideation: No Suicidal Plan: No Suicidal Intention: No Homicidal Ideation: No Homicidal Plan: No Homicidal Intention: No Insight: Fair Judgment: Impulsive Assessment and Plan - Assessment (1) Adjustment disorder with depressed mood Code(s): F43.21 - Adjustment disorder with depressed mood Status: Acute - Plan Plan: The patient reports increasing symptoms of depression since his 2 months ago. The patient reports that he has been increasingly hopeless, helpless, worthless, isolated, with increased generalized pessimism, lack of energy and sleep, suicidal thoughts. He says that yesterday he was feeling frustrated, abandonment, and thought about committing suicide by jumping inside his house pool or in front of a car. He does not have any previous psychiatric history, no previous suicide attempts, he has no previous psychiatric hospitalizations. Patient continues to endorse symptoms of depression, but now denies suicidal ideation. He was able to contract for safety in the hospital. Given his elevated risk of danger to self, the patient will be admitted in psychiatry for stabilization and safety. We will start Prozac 10 mg daily for depression. Transfer to psychiatry once medically stable. Justification for Continued Inpatient Stay: To be admitted in psychiatry.
--- NOTE | 2018-05-21 15:32 | MB ---
cc: Qasim Jung MD, PhD DATE: 05/21/2018 REASON FOR CONSULTATION: Recurrent seizure. HISTORY OF PRESENT ILLNESS: This patient is a 72-year-old man who has a history of posttraumatic seizure disorder. He takes Dilantin for this, states he was on 200 mg b.i.d., which was increased to 300 mg t.i.d. because of a low level, but he states he has been missing doses inadvertently. He presents now with a recurrent generalized seizure. PAST MEDICAL HISTORY: History of COPD, CHF, stroke in the past, diabetes, esophageal stricture, hyperlipidemia, hypertension, [place], seizure disorder after head trauma. CURRENT MEDICATIONS: 1. Lipitor 40 mg daily. 2. Wellbutrin XL 150 mg daily. 3. BuSpar 7.5 mg t.i.d. 4. Neurontin 300 mg daily. 5. Subcutaneous heparin. 6. Levemir insulin. 7. Lopressor. 8. Protonix 40 mg daily. NEUROLOGIC: His blood pressure is 141/80, pulse is 77, respirations 16, temperature 98 degrees. HIGHER CORTICAL FUNCTION: Alert, oriented x3. Follows commands. Speech is fluent. Cranial nerves intact. 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 There is no drift. Fine motor skills within normal. Reflexes are symmetric. Gait is unsteady, ataxic. LABORATORY DATA: Dilantin level yesterday was 36.5, today is 33.2 with Dilantin being on hold. White count 8900, hemoglobin 13.9, hematocrit 42%, platelet count 270,000. PT 10.7, INR 1.1. His sodium is 136, potassium 5.1, chloride 101, CO2 of 27.8, BUN is 19, creatinine 1.15, GFR 62, glucose 144, AST 23, ALT 31, alkaline phosphatase 298. Tox screen otherwise negative. IMPRESSION: Recurrent seizure. Would suspect this was probably related to Dilantin toxicity. RECOMMENDATIONS: Continue to hold the Dilantin dose. Would resume Dilantin once the level is under 20 at a lower dose of 200 mg b.i.d. and follow levels. We will place him under seizure precautions at the present time. Qasim Jung MD, PhD IBAN/sb , 03:17 PM , 03:23 PM
[2018-05-21] MEDS ORDERED: LORazepam 0.5 MG Tablet PO PRN (17:16)
[2018-05-21] MEDS: Gabapentin 300 MG Capsule PO SCH (21:03)
[2018-05-22] MEDS: Sod Chloride 0.9% Inj 1,000 ML IV.CONT SCH ×3 (02:52→22:08)
[2018-05-22] MEDS: Insulin NovoLOG Aspart Correctional Sugar Inj SQ SCH ×5 (04:07→22:11)
--- NOTE | 2018-05-22 06:31 | ECG ---
Date Performed: 05/20/2018 Time Performed: 18:47:18 PTAGE: 72 years EKG: Sinus rhythm MARKED LEFT AXIS DEVIATION NONSPECIFIC T-WAVE ABNORMALITY ABNORMAL ECG NO PREVIOUS TRACING DOCTOR: Thaddeus Emmanuel Interpretating Date/Time 05/22/2018 06:28:15
[2018-05-22] MEDS: Heparin - SQ 10,000 UNITS/ML Vial SQ SCH ×2 (08:53→22:08)
[2018-05-22] MEDS: Metoprolol Tartrate 25 MG Tablet PO SCH ×2 (08:54→22:10)
[2018-05-22] MEDS: buPROPion 150 MG XL 24 HR Tablet PO SCH (08:54)
[2018-05-22] MEDS: Insulin Detemir Inj 1,000 UNIT/10 ML Vial SQ SCH ×2 (09:00→22:09)
--- NOTE | 2018-05-22 10:15 | P.PNIM ---
Subjective Interval history: Follow-up for Dilantin toxicity, depression with suicidal ideations. Patient reports feeling slightly better today, however still with occasional mild headache and lightheadedness, worse upon ambulation. No reported seizure activity overnight. Denies any fever/chills, chest pain, shortness breath, or abdominal complaints. He reports continued depression, although denies any suicidal ideations. Physical Exam Vital signs: Vital Signs 05/21/18 12:00 05/21/18 20:00 05/22/18 00:00 Temperature 98.2 F 98.7 F Pulse Rate 77 78 68 Respiratory Rate 16 17 Blood Pressure 141/80 H 155/88 H Pulse Oximetry 100 96 05/22/18 00:55 05/22/18 04:00 05/22/18 08:00 Temperature 97.8 F 97.9 F 97.9 F Pulse Rate 70 81 79 Respiratory Rate 17 17 18 Blood Pressure 138/86 119/79 135/92 H Pulse Oximetry 98 94 L 96 Intake & Output 05/21/18 05/22/18 05/22/18 18:59 06:59 18:59 Intake Total 2740 / 2740 Output Total 600 / 600 Balance 2140 / 2140 Intake: IV 1000 / 1000 NS Inj 1,000 ML @ 100 mls/hr IV 1000 / 1000 .CONT .Q10H [facility] Rx#:[id number] Oral 240 / 240 Other 1500 / 1500 Output: Urine 600 / 600 Other: Other Intake Source Saline Solution # Voids 2 3 Date of Last Bowel Movement 05/20/18 05/20/18 Narrative: GENERAL: Well-nourished, well-developed pleasant elderly male patient in [facility]. SKIN: Warm and dry. No rash. HEENT: Atraumatic. Pupils equal and round. Mucous membranes pink and moist. Poor dentition. CARDIOVASCULAR: Regular rate and rhythm. No murmur appreciated. RESPIRATORY: No accessory muscle use. Clear to auscultation. Breath sounds equal bilaterally. GASTROINTESTINAL: Abdomen soft, non-tender, nondistended. Normoactive bowel sounds x4. MUSCULOSKELETAL: No obvious deformities. Extremities without clubbing, cyanosis , or edema. NEUROLOGICAL: Awake and alert. No obvious cranial nerve deficits. Moving all extremities spontaneously. Normal speech. Results Labs CBC & Chem 7: 05/20/18 13:10 05/21/18 07:30 Assessment and Plan (1) Adjustment disorder with depressed mood: Code(s): F43.21 - Adjustment disorder with depressed mood Status: Acute Plan 72-year-old male with a past medical history significant for seizure disorder on Dilantin, diabetes mellitus, hypertension, congestive heart failure, coronary artery disease, hyperlipidemia and history of CVA presents to the emergency department under [facility] act for the evaluation of suicidal ideation. Dilantin toxicity: acute. Patient reports increase in Dilantin dose on Saturday by his PCP. Denies intentional overdose. -Poison control contacted, recommend repeat Dilantin level every 4 hours until peak and 2 declining values -Trend Dilantin level 31 --> 36 --> 35 --> 33 --> awaiting repeat level today 05/22 -Monitor on telemetry -Supportive care Suicidal ideation: patient endorses depression, worse recently with loss of -Patient placed under [facility] act -Psychiatry consulted, appreciate assistance, recommends admission to psychiatry when medically stable Breakthrough Seizures: patient reporting recent breakthrough seizures -dilantin on hold for now due to toxicity as above -seizure precautions -consult neurology, appreciate assistance, restart dilantin at lower dose when level < 20 Diabetes mellitus: Chronic -Continue long-acting insulin -Sliding scale insulin -Monitor blood glucose Hypertension/hyperlipidemia/CAD/CHF: Chronic, stable -Continue home medications as appropriate -Monitor BP, adjust antihypertensives as needed DVT Prophylaxis: Heparin sq Progress Note: Quality VTE Deep Vein Thrombosis/Pulmonary Embolism Present on Admission: Yes
[2018-05-22] MEDS: Sodium Chloride 0.9% 2 ML Flush BID IV.FLUSH SCH ×2 (10:43→22:11)
--- NOTE | 2018-05-22 12:12 | P.PNNEU ---
Subjective Subjective Comments: no new c/o. No seizures Active Medications: Active Medications Atorvastatin Calcium (Lipitor) 40 mg PO QPM [facility] Last Admin: 05/21/18 17:59 Dose: 40 mg Bupropion HCl (Wellbutrin Xl) 150 mg PO DAILY [facility] Last Admin: 05/22/18 08:54 Dose: 150 mg Buspirone HCl (Buspar) 7.5 mg PO TID [facility] Last Admin: 05/22/18 08:53 Dose: 7.5 mg Dextrose (D50w Vial) 50 ml IV.PUSH UNSCH PRN PRN Reason: PER HYPOGLYCEMIA PROTOCOL Gabapentin (Neurontin) 300 mg PO HS [facility] Last Admin: 05/21/18 21:03 Dose: 300 mg Glucagon (Glucagon Inj) 1 mg OTHER PRN PRN PRN Reason: for Hypoglycemia Protocol Heparin Sodium (Porcine) (Heparin Inj) 5,000 units SQ Q12HR [facility] Last Admin: 05/22/18 08:53 Dose: 5,000 units Sodium Chloride (Ns Inj) 1,000 mls @ 100 mls/hr IV.CONT .Q10H [facility] Last Admin: 05/22/18 02:52 Dose: 100 mls/hr Insulin Aspart (Novolog Insulin Correctional Sugar Inj) 0 unit SQ ACHS AND 3AM [facility]; Protocol Last Admin: 05/22/18 08:52 Dose: Not Given Insulin Detemir (Levemir Inj) 17 unit SQ BID [facility] Last Admin: 05/22/18 09:00 Dose: 17 unit Lorazepam (Ativan) 0.5 mg PO Q8H PRN PRN Reason: ANXIETY Last Admin: 05/21/18 17:58 Dose: 0.5 mg Lorazepam (Ativan Inj) 1 mg IV.PUSH Q2H PRN PRN Reason: active seizure Metoprolol Tartrate (Lopressor) 25 mg PO BID [facility] Last Admin: 05/22/18 08:54 Dose: 25 mg Miscellaneous (Pill Splitter) 1 each OTHER UNSCH PRN PRN Reason: SEE LABEL COMMENTS Pantoprazole Sodium (Protonix) 40 mg PO DAILY [facility] Last Admin: 05/22/18 08:52 Dose: 40 mg Sodium Chloride (Ns Flush) 2 ml IV.FLUSH BID [facility] Last Admin: 05/22/18 10:43 Dose: Not Given Sodium Chloride (Ns Flush) 2 ml IV.FLUSH PRN PRN PRN Reason: FLUSH AFTER USING IV ACCESS Allergies/Adverse Reactions: Allergies Allergy/AdvReac Type Severity Reaction Status Date / Time No Known Allergies Allergy Verified 05/20/18 12:52 Physical Exam Vital signs: Vital Signs 05/21/18 20:00 05/22/18 00:00 05/22/18 00:55 Temperature 98.7 F 97.8 F Pulse Rate 78 68 70 Respiratory Rate 17 17 Blood Pressure 155/88 H 138/86 Pulse Oximetry 96 98 05/22/18 04:00 05/22/18 08:00 05/22/18 11:00 Temperature 97.9 F 97.9 F Pulse Rate 81 77 72 Respiratory Rate 17 18 Blood Pressure 119/79 135/92 H Pulse Oximetry 94 L 96 Intake & Output 05/21/18 05/22/18 05/22/18 18:59 06:59 18:59 Intake Total 2740 / 2740 Output Total 600 / 600 Balance 2140 / 2140 Intake: IV 1000 / 1000 NS Inj 1,000 ML @ 100 mls/hr IV 1000 / 1000 .CONT .Q10H [facility] Rx#:[id number] Oral 240 / 240 Other 1500 / 1500 Output: Urine 600 / 600 Other: Other Intake Source Saline Solution # Voids 2 3 Date of Last Bowel Movement 05/20/18 05/20/18 - Routine Neurological Exam alert, oriented, speech normal CN intact MOTOR 5/5 BUE Objective Laboratory Results - last 24 hr 05/21/18 05/21/18 05/21/18 12:29 17:58 20:38 POC Glucose 129 H 145 H 126 H 05/22/18 08:50 POC Glucose 135 H Review/Management - Review/Management Plan: seizure disorder dilantin toxicity. Recommend restarting dilantin at 200 mg bid once level is < 20. Ok to dc home when level is reduced. Follow up with me in 3 weeks
[2018-05-22] MEDS: Gabapentin 300 MG Capsule PO SCH (22:10)
[2018-05-23] MEDS: Insulin NovoLOG Aspart Correctional Sugar Inj SQ SCH ×2 (04:16→09:12)
[2018-05-23 05:56] VITALS: BP 149/90; PULSE 71; RESP 18; TEMP 97.7; O2SAT 96
[2018-05-23] MEDS: buPROPion 150 MG XL 24 HR Tablet PO SCH (08:45)
[2018-05-23] MEDS: Heparin - SQ 10,000 UNITS/ML Vial SQ SCH (08:45)
[2018-05-23] MEDS: Metoprolol Tartrate 25 MG Tablet PO SCH (08:45)
[2018-05-23] MEDS: Insulin Detemir Inj 1,000 UNIT/10 ML Vial SQ SCH (09:12)
[2018-05-23] MEDS: Sod Chloride 0.9% Inj 1,000 ML IV.CONT SCH (09:12)
[2018-05-23] MEDS: Sodium Chloride 0.9% 2 ML Flush BID IV.FLUSH SCH (09:12)
--- NOTE | 2018-05-23 11:00 | P.DS ---
DS: Providers Date of admission: 05/20/18 18:47 Primary care physician: UNKNOWN Consults: 05/20/18 20:26 Consult to Psychiatry Routine Consulting Provider: Kwame Richardson Reason for Consultation: Silva act for SI Spoke with:: cindi Date Notified:: 05/20/18 Time Notified:: 22:39 Ordering Provider: HYUN 05/21/18 11:42 Consult to Neurology Routine Consulting Provider: Qasim Jung Reason for Consultation: breakthrough seizures on dilantin, previously also on phenobarbital Notified:: Office Spoke with:: iraj Date Notified:: 05/21/18 Time Notified:: 11:44 Ordering Provider: CHIRAG Mccoy date of discharge: 05/23/18 Brief History from admission: 72-year-old male with a past medical history significant for seizure disorder on Dilantin, diabetes mellitus, hypertension, congestive heart failure, coronary artery disease, hyperlipidemia and history of CVA presents to the emergency department under Silva act for the evaluation of suicidal ideation. The patient reports that earlier today he was feeling depressed and called the crisis line telling them that he wanted to jump in front of a truck. He reports that his recently and he has been struggling with depression since that time. He also states that he takes Dilantin 3 times a day and recently his primary care provider increased him from 200-300 mg 3 times daily. His Dilantin level is currently elevated. He denies any intentional overdose. No chest pain or shortness of breath. No abdominal pain. No nausea/vomiting/diarrhea. No fever/chills. No focal neurologic deficits. Patient update on day of discharge: Follow-up for Dilantin toxicity. Patient reports feeling slightly better today, however still with mild headache and occasional dizziness with ambulation. He has still been ambulating his room without much difficulty. He denies any chest pain, palpitations, shortness of breath. He is refusing his telemetry and his IV fluids. Reports continued depression, but still denying suicidal ideations. Denies any other medical complaints at this time. Tolerating oral intake. DS: Diagnosis Discharge Diagnosis (1) Adjustment disorder with depressed mood: Status: Acute DS: Summary 72-year-old male with a past medical history significant for seizure disorder on Dilantin, diabetes mellitus, hypertension, congestive heart failure, coronary artery disease, hyperlipidemia and history of CVA presents to the emergency department under Silva act for the evaluation of suicidal ideation. Dilantin toxicity: acute. Patient reports increase in Dilantin dose on Saturday by his PCP. Denies intentional overdose. Poison control contacted, recommend repeat Dilantin level until peak and 2 declining values. Trend Dilantin level 31 --> 36 --> 35 --> 33 --> 29 --> 28. Monitor on telemetry, has been unremarkable, however patient now refusing. Continue to hold dilantin. Neurology recommending restarting dilantin at lower dose of 200mg po bid once level is < 20. This will be followed on med/psych unit. Suicidal ideation: patient endorses depression, worse recently with loss of . Patient placed under Silva act. Psychiatry consulted, appreciate assistance, recommends admission to psychiatry when medically stable. Transferring to med/psych unit today. Breakthrough Seizures: patient reporting recent breakthrough seizures. Dilantin on hold for now due to toxicity as above. Seizure precautions. Consult neurology , appreciate assistance, breakthrough seizures likely secondary to dilantin toxicity, recommends restarting dilantin at lower dose of 200mg bid when level < 20. No further seizure activity during hospitalization, stable for transfer to med/psych. Diabetes mellitus: Chronic. Continue long-acting insulin and Sliding scale insulin Hypertension/hyperlipidemia/CAD/CHF: Chronic, stable. Continue home medications Attending Attestation: patient was seen and examined before discharge. looks comfortable although he says that ' he had some nightmares last night'. dilantin level trending down; will resume Dilantin when the level < 20 per neurology recommendations. plan to dc to psych unit. Time Spent with Patient Total time spent providing and/or coordinating discharge services: Greater than 30 minutes Quality: VTE Deep Vein Thrombosis/Pulmonary Embolism Present on Admission: Yes Exam Narrative Exam Narrative: GENERAL: Well-nourished, well-developed pleasant elderly male patient in NAD. SKIN: Warm and dry. No visible rash. HEENT: Atraumatic. Pupils equal and round. Mucous membranes pink and moist. Poor dentition. CARDIOVASCULAR: Regular rate and rhythm. No murmur appreciated. RESPIRATORY: No accessory muscle use. Clear to auscultation. Breath sounds equal bilaterally. GASTROINTESTINAL: Abdomen soft, non-tender, nondistended. Normoactive bowel sounds x4. MUSCULOSKELETAL: No obvious deformities. Extremities without clubbing, cyanosis , or edema. NEUROLOGICAL: Awake and alert. No obvious cranial nerve deficits. Moving all extremities spontaneously. Normal speech. Results Labs on day of discharge: Labs from last 24 hours 05/23/18 05/23/18 05/23/18 08:54 07:10 03:19 POC Glucose 95 106 Phenytoin 28.5 H 05/22/18 05/22/18 05/22/18 21:57 17:50 13:17 POC Glucose 116 H 88 Phenytoin 29.5 H 05/22/18 13:01 POC Glucose 145 H Phenytoin Discharge Plan Discharge Disposition Patient Disposition: 63 Disc To Psych Care Facility Discharge Condition Condition: Stable Discharge Order Discharge Orders: Discharge Order (Routine); Ordered 05/23/18 Ordered By: Jenifer Paige Discharge Details Anticipated Discharge Date: 05/23/18 Discharge Comment: Ok to discharge to med/psych unit. Continue to hold dilantin and monitor dilantin level daily in med/psych unit. Physicians Team Primary Care Provider: UNKNOWN, Attending Provider: Essie Calvillo Other Providers: Kwame Richardson ; Qasim Jung Rxs /Orders / Referrals /Forms Prescriptions: Continue atorvastatin [Lipitor] 40 mg Tablet 40 mg PO QPM RF: 0 alprazolam [Xanax] 0.25 mg Tablet 0.25 mg PO TID PRN (Reason: Anxiety) RF: 0 pantoprazole 40 mg Tablet,Delayed Release (Dr/Ec) 40 mg PO DAILY RF: 0 gabapentin 300 mg Capsule 300 mg PO HS RF: 0 buspirone 7.5 mg Tablet 7.5 mg PO TID RF: 0 bupropion HCl [Wellbutrin XL] 150 mg Tablet Extended Release 24 Hr 150 mg PO QAM RF: 0 metoprolol tartrate 25 mg Tablet 25 mg PO BID RF: 0 insulin detemir U-100 [Levemir FlexTouch U-100 Insuln] 100 unit/mL (3 mL) Insulin Pen 17 unit SUBCUT BID RF: 0 sitagliptin [Januvia] 100 mg Tablet 100 mg PO DAILY RF: 0 Discontinued tizanidine 4 mg Tablet 4 mg PO TID RF: 0 phenytoin [Dilantin Infatabs] 50 mg Tablet,Chewable 100 mg PO TID RF: 0 Referrals: UNKNOWN, [Primary Care Provider] - See Instructions (HAVE PT. CALL [facility] @ [phone]. tHE NUMBER HAS BEEN BUSY FOR SEVERAL MINUTES.) Discharge Instructions Patient Printed Instructions: Dilantin Toxicity (ED) Status ED Status: Left Department Discharge Information Discharge Date/Time: 05/23/18 10:58
== END 2018-05-23 10:58 ==
LOC: NEPB 12:42 → NEDA 12:42 → NEPFCDU 23:20
PROVIDERS: ADMIT Internal Medicine; ATTEND Internal Medicine
DX: I25.2 Old myocardial infarction; R45.851 Suicidal ideations; E78.5 Hyperlipidemia, unspecified; Z79.4 Long term (current) use of insulin; F43.21 Adjustment disorder with depressed mood; I25.10 Atherosclerotic heart disease of native coronary artery without angina pectoris; I11.0 Hypertensive heart disease with heart failure; E11.9 Type 2 diabetes mellitus without complications; I50.9 Heart failure, unspecified; Z86.73 Personal history of transient ischemic attack (TIA), and cerebral infarction without residual deficits; J44.9 Chronic obstructive pulmonary disease, unspecified; G40.509 Epileptic seizures related to external causes, not intractable, without status epilepticus; Z79.899 Other long term (current) drug therapy; T42.0X5A Adverse effect of hydantoin derivatives, initial encounter
CPT/HCPCS: 80048; 80053; 80185; 80307; 81001; 82948; 82962; 83735; 84443; 85025; 85610; 93005; 96360; 96361; 96372; 99285; G0378; J1644; J1815; J7030

== ENCOUNTER 2018-05-23 09:57 | Inpatient (IN) ==
[2018-05-23] MEDS ORDERED: Aluminum/Magnesium/Simethacone Susp 30 ML UDC PO PRN (13:52)
[2018-05-23] MEDS ORDERED: Bisacodyl 10 MG Supp RECTAL PRN (13:52)
[2018-05-23] MEDS ORDERED: Metoprolol Tartrate 25 MG Tablet PO SCH (14:00)
[2018-05-23] MEDS: Insulin Detemir Inj 1,000 UNIT/10 ML Vial SQ SCH (21:20)
[2018-05-23] MEDS: Metoprolol Tartrate 25 MG Tablet PO SCH (21:21)
[2018-05-23] MEDS: Senna/Docusate Sodium 8.6/50 MG Tablet PO SCH (21:21)
[2018-05-23] MEDS: Gabapentin 300 MG Capsule PO SCH (21:21)
[2018-05-24] MEDS: Insulin Detemir Inj 1,000 UNIT/10 ML Vial SQ SCH ×2 (08:58→21:43)
[2018-05-24] MEDS: Metoprolol Tartrate 25 MG Tablet PO SCH ×2 (08:58→21:44)
[2018-05-24] MEDS: Senna/Docusate Sodium 8.6/50 MG Tablet PO SCH ×2 (08:58→21:44)
[2018-05-24] MEDS ORDERED: buPROPion 150 MG 12 HR Tablet PO SCH (09:00)
[2018-05-24 09:02] LABS: Calcium 9.6 mg/dL (8.5-10.1); Carbon Dioxide 24.8 meq/L (21.0-32.0); Chol/HDL Ratio 2.17 Ratio; HDL Cholesterol 59.4 mg/dL (40.0-60.0); Potassium 3.9 meq/L (3.5-5.1)
--- NOTE | 2018-05-24 10:41 | P.HPPSY ---
Provisional Diagnosis Admission Date: May 23, 2018 10:45 Melrude I.: Major depressive disorder single episode moderate Competence Certification of Person's Competence To Provide Express and Informed Consent I have personally examined Luis Marx, a person being served at [facility] on, May 24, 2018 1040. Express and informed consent means consent voluntarily given in writing, by a competent person, after sufficient explanation and disclosure of the subject matter involved to enable the person to make a knowing and willful decision without any element of force, fraud, deceit, duress, or other form of constraint or coercion. This person is 18 years of age or older, is not now known to be incompetent to consent to treatment with a guardian advocate, and does not have a health care surrogate or proxy currently making medical treatment decisions. I have found this person to be one of the following: [xxx] Competent to provide express and informed consent, as defined above, for voluntary admission to this facility and is competent to provide express and informed consent for treatment. He/she has the consistent capacity to make well reasoned, willful, and knowing decisions concerning his or her medical or mental health treatment. The person fully and consistently understands the purpose of the admission for examination/placement and is fully capable of personally exercising all rights assured under [place] Incompetent to provide express and informed consent to voluntary admission, and this is incompetent to provide express and informed consent to treatment. The person must be transferred to involuntary status and a petition for a guardian advocate filed with the Circuit Court. [] Refusing to provide express and informed consent to voluntary admission but is competent to provide express and informed consent for treatment. The person must be discharged or transferred to involuntary status. Form shall be completed within 24 hours of a person's arrival at the receiving facility and filed in the clinical record of each person: 1. Admitted on a voluntary basis 2. Permitted to provide express and informed consent to his/her own treatment 3. Allowed to transfer from involuntary to voluntary status 4. Prior to permitting a person to consent to his or her own treatment after having been previously found incompetent to consent to treatment. History of Present Illness Capacity: Has capacity Chief Complaint: "I have been feeling depressed since losing my and I just need someone to talk to" History of Present Illness: The patient is a 72-year-old man, , father of 3 kids, domiciled with his son in [place], no previous psychiatric history, no pre-suicide attempts, no previous psychiatric hospitalizations, denies the use of illegal drugs and alcohol, medical history of seizure disorder on Dilantin, diabetes mellitus, hypertension, congestive heart failure, coronary artery disease, hyperlipidemia and history of CVA, who presents to the emergency department under Silva act for the evaluation of suicidal ideation. The patient reports that earlier today he was feeling depressed and called the crisis line telling them that he wanted to jump in front of a truck or to throw himself in his house pool. He reports that his recently and he has been struggling with depression since that time. He also states that he takes Dilantin 3 times a day and recently his primary care provider increased him from 200-300 mg 3 times daily. His Dilantin level is currently elevated. He denies any intentional overdose. Initial Dilantin level 31.0, repeat 36.5. The patient was seen today for psychiatric reevaluation. Chart was reviewed. On my psychiatric evaluation today the patient reports that he feels much better today. However, he says that he has been very depressed since his 2 months ago. He says that he has been struggling with increased sense of sadness , poor self-esteem, difficulty sleeping at night, suicidal thoughts, daily tears , generalized pessimism, difficulties related with other people. At this moment the patient denies suicidal ideation, he says that yesterday he was just upset and acutely depressed, but today he has realized that he does not want to . Patient reports that maybe is better for him to be admitted in psychiatry and start treatment for depression. The patient is fully oriented x3, without attention deficit, no gross cognitive impairment. He is mostly logical, coherent and relevant. No agitation, no aggressive behavior present. The patient was medically stabilized and transferred to the medical psych unit on 05/23/2018. Patient was seen this morning for a reevaluation for the appropriateness of continuing the involuntary Silva act order. Patient continues to deny suicidal intent and reports that he called the crisis line because he wanted someone to talk to. He reports that he initially talked to some elders from his [employer] witness faith and was offered a chance to speak to members of his faith, "but I made the mistake of calling the crisis line instead." As for his depression, patient reports worsening sleep as a primary symptom as well as decreased interest to leave the house and go for walks as was usually has habit prior to his 's passing. He reports decreased energy and decreased appetite and he has experienced symptoms of hypnopompic hallucinations that have further caused him stress. We discussed risk benefits side effects and alternative treatments for depression and sleep disturbances and he chooses a trial of melatonin and mirtazapine. PPHx: No psychiatric history, no pre-suicide attempts, no previous hospitalization PMHx: seizure disorder on Dilantin, diabetes mellitus, hypertension, congestive heart failure, coronary artery disease, hyperlipidemia and history of CVA, Substance Hx: Denies the use of illegal drugs or alcohol Family Hx: No family psychiatric history Social Hx: Born and raised in [place], he lives with his son in [place], , unemployed, supported by social security - Inpatient Certification I certify that the inpatient services were ordered in accordance with Medicare regulations governing the order. This includes certification that hospital inpatient services are reasonable and necessary and in the case of services not specified as inpatient-only under 42 CFR 419.22(n), that they are appropriately provided as inpatient services in accordance to with the 2-midnight benchmark under 43 CFR 412.3(e) I certify that inpatient psychiatric hospital services are medically necessary. Evaluation and treatment and/or diagnostic testing are expected to improve the patient's condition. The patient needs on a daily basis, active treatment furnished directly by or requiring the supervision of inpatient psychiatric facility personnel. Estimated Total Length of Stay (Days): 7 Plans for Post Hospital Care: Home [facility] - History History Provided By: Patient - Medical History Medical History: Medical History (Last Updated 05/20/18 @ 20:33 by Sofia Jones MD) CHF (congestive heart failure) COPD (chronic obstructive pulmonary disease) CVA (cerebral vascular accident) Diabetes Esophageal stricture Hyperlipidemia Hypertension Myocardial infarction Seizure disorder - Surgical History Surgical History: Surgical History (Last Updated 05/20/18 @ 20:33 by Sofia Jones MD) History of appendectomy History of cardiac catheterization Hx of hand surgery - Family History Family History: Family History Other Diabetes mellitus - Tobacco History Second Hand Smoke Exposure: No Smoking Status: Former smoker Tobacco Type: Cigarettes - Alcohol History How Often Do You Have a Drink Containing Alcohol: Never - Substance Use History Substance History: No History of Abuse Medications and Allergies Active Medications: Active Medications Al Hydrox/Mg Hydrox/Simethicone (Mag-Al Plus Susp Liq) 30 ml PO Q6H PRN PRN Reason: DYSPEPSIA Al Hydroxide/Mg Hydroxide (Milk Of Magnesia Liq) 30 ml PO Q12H PRN PRN Reason: Mild Constipation Atorvastatin Calcium (Lipitor) 40 mg PO QPM [facility] Last Admin: 05/23/18 18:13 Dose: 40 mg Bisacodyl (Dulcolax Supp) 10 mg RECTAL DAILY PRN PRN Reason: SEVERE CONSITIPATION Gabapentin (Neurontin) 300 mg PO HS [facility] Last Admin: 05/23/18 21:21 Dose: 300 mg Insulin Detemir (Levemir Inj) 17 unit SQ BID [facility] Last Admin: 05/24/18 08:58 Dose: 17 unit Lactulose (Lactulose Liq) 30 ml PO DAILY PRN PRN Reason: SEVERE CONSITIPATION Metoprolol Tartrate (Lopressor) 25 mg PO BID [facility] Last Admin: 05/24/18 08:58 Dose: 25 mg Miscellaneous (Pill Splitter) 1 each OTHER [facility] Pantoprazole Sodium (Protonix) 40 mg PO DAILY [facility] Last Admin: 05/24/18 08:58 Dose: 40 mg Senna/Docusate Sodium (Anat-Colace) 1 tab PO BID [facility] Last Admin: 05/24/18 08:58 Dose: 1 tab Sennosides (Senokot) 17.2 mg PO Q12H PRN PRN Reason: Moderate Constipation Sitagliptin Phosphate (Januvia) 100 mg PO DAILY [facility] Last Admin: 05/24/18 08:58 Dose: 100 mg Allergies Allergy/AdvReac Type Severity Reaction Status Date / Time No Known Allergies Allergy Verified 05/20/18 12:52 Home Medications Medication Instructions Recorded Confirmed Type alprazolam [Xanax] 0.25 mg PO TID PRN 05/20/18 05/20/18 History atorvastatin [Lipitor] 40 mg PO QPM 05/20/18 05/20/18 History bupropion HCl [Wellbutrin XL] 150 mg PO QAM 05/20/18 05/20/18 History buspirone 7.5 mg PO TID 05/20/18 05/20/18 History gabapentin 300 mg PO HS 05/20/18 05/20/18 History insulin detemir U-100 [Levemir 17 unit SUBCUT BID 05/20/18 05/20/18 History FlexTouch U-100 Insuln] metoprolol tartrate 25 mg PO BID 05/20/18 05/20/18 History pantoprazole 40 mg PO DAILY 05/20/18 05/20/18 History sitagliptin [Januvia] 100 mg PO DAILY 05/20/18 05/20/18 History Results - Labs CBC & Chem 7: 05/24/18 07:38 Labs: Laboratory Results - last 24 hr 05/24/18 05/24/18 03:52 07:38 Sodium 138 Potassium 3.9 Chloride 104 Carbon Dioxide 24.8 Anion Gap 9 BUN 27 H Creatinine 1.27 Estimated GFR 67 L POC Glucose 120 H Random Glucose 105 Calcium 9.6 Triglycerides 55 Cholesterol 129 LDL Cholesterol, Calc 59 HDL Cholesterol 59.4 Cholesterol/HDL Ratio 2.17 Exam Vital signs: Vital Signs 05/23/18 11:58 05/23/18 18:00 05/24/18 06:00 Temperature 98.5 F 98.1 F Pulse Rate 77 85 82 Respiratory Rate 18 16 18 Blood Pressure 147/81 H 132/74 128/75 Pulse Oximetry 96 97 95 Intake & Output 05/23/18 05/24/18 05/24/18 18:59 06:59 18:59 Intake Total 960 / 960 Balance 960 / 960 Weight 72.91 kg Intake: Oral 960 / 960 Other: Weight On Admission 72.91 kg Mental Status Examination Appearance: Appropriate Consciousness: Alert Orientation: x4 Motor Activity: Normal gait Speech: Unremarkable Language: Adequate Fund of Knowledge: Adequate Attention and Concentration: Adequate Memory: Unremarkable Mood: Sad Affect: Sad Thought Process & Associations: Intact Thought Content: Appropriate Hallucination Type: None Delusion Type: None Suicidal Ideation: No Homicidal Ideation: No Insight: Fair Judgment: Adequate Assessment and Plan - Assessment (1) Current moderate episode of major depressive disorder Code(s): F32.1 - Major depressive disorder, single episode, moderate Status: Acute - Plan Plan: 1. Continue with admission to inpatient psychiatry at [facility]; convert to voluntary/competent legal status. 2. Routine unit precautions. 3. Comfort medications ordered for as needed treatment of constipation, heartburn, diarrhea, and mild pain. 4. Hydroxyzine 50mg po q6H prn anxiety/insomnia. 5. Discontinue Wellbutrin due to increased risk of seizures. 6. Start Remeron 15 mg at bedtime for treatment of depression. 7. Start melatonin 5 mg at bedtime for treatment of insomnia. 8. Patient will participate in the unit programming to include group therapies , milieu therapy and recreational therapies. 9. Discharge planning: The patient will need referrals for outpatient mental health to include psychiatric services and ideally group counseling for grief. Estimated LOS: 3 days Justification for Continued Inpatient Stay: Patient remains an elevated risk for self-harm by by acting out on suicidal ideations due to worsening depression if further intervention not provided and therefore he will require further inpatient stabilization and preparation of a safe discharge plan. Moving patient to a less restrictive environment at this time may result in decompensation. (1) Current moderate episode of major depressive disorder Qualifiers: Major depression recurrence: single episode Qualified Code(s): F32.1 - Major depressive disorder, single episode, moderate
[2018-05-24 13:24] LABS: Hemoglobin A1c 5.5 % (4.3-6.0)
[2018-05-24] MEDS: Gabapentin 300 MG Capsule PO SCH (21:44)
[2018-05-24] MEDS: Mirtazapine 15 MG Tablet PO SCH (21:44)
[2018-05-24] MEDS: Melatonin 5 MG Tablet PO SCH (21:44)
[2018-05-25] MEDS: Senna/Docusate Sodium 8.6/50 MG Tablet PO SCH ×2 (09:05→21:53)
[2018-05-25] MEDS: Insulin Detemir Inj 1,000 UNIT/10 ML Vial SQ SCH ×2 (09:05→21:53)
[2018-05-25] MEDS: Metoprolol Tartrate 25 MG Tablet PO SCH ×2 (09:05→21:52)
--- NOTE | 2018-05-25 14:24 | P.PNPSY ---
Subjective Chief Complaint: "I have been feeling depressed since losing my and I just need someone to talk to" Remarks: Patient seen for follow-up, chart reviewed, patient discussed with nursing staff ; we reviewed the patient's mood, thoughts, and behaviors from overnight and this morning. Nurse reports the patient slept 7 hours overnight and had been calm and cooperative throughout the evening shift and urban sociologist shift. Patient was seen sitting in the day room after breakfast. He reports sleeping very well and thus far tolerated the new medications. He continues to talk about "we" and referencing the things he used to do with his and how much she misses her. He denies any homicidal or suicidal ideations. We discussed this treatment plan which includes a recheck of his Dilantin level and a plan to discharge home tomorrow if his Dilantin level is below 20. Mental Status Examination Appearance: Appropriate Consciousness: Alert Orientation: x4 Motor Activity: Normal gait Speech: Unremarkable Language: Adequate Fund of Knowledge: Adequate Attention and Concentration: Adequate Memory: Unremarkable Mood: Sad Affect: Sad Thought Process & Associations: Intact Thought Content: Appropriate Hallucination Type: None Delusion Type: None Suicidal Ideation: No Homicidal Ideation: No Insight: Fair Judgment: Adequate Assessment and Plan - Assessment (1) Current moderate episode of major depressive disorder Code(s): F32.1 - Major depressive disorder, single episode, moderate Status: Acute - Plan Plan: May 24, 2018: Initial treatment plan 1. Continue with admission to inpatient psychiatry at [facility]; convert to voluntary/competent legal status. 2. Routine unit precautions. 3. Comfort medications ordered for as needed treatment of constipation, heartburn, diarrhea, and mild pain. 4. Hydroxyzine 50mg po q6H prn anxiety/insomnia. 5. Discontinue Wellbutrin due to increased risk of seizures. 6. Start Remeron 15 mg at bedtime for treatment of depression. 7. Start melatonin 5 mg at bedtime for treatment of insomnia. 8. Patient will participate in the unit programming to include group therapies , milieu therapy and recreational therapies. 9. Discharge planning: The patient will need referrals for outpatient mental health to include psychiatric services and ideally group counseling for grief. Estimated LOS: 3 days May 25, 2018: Good response to treatment as the patient reports sleeping very well last night and tolerating medications. He continues to express sadness from grief of loss of and would benefit from a referral for counseling. Patient's Dilantin was rechecked today and it was 20.1 therefore he will likely be safe for discharge home tomorrow. Continue current inpatient psychiatric treatment plan, medications unchanged. Anticipate restart of Dilantin 200 mg twice a day per recommendation of neurology. Anticipate discharge tomorrow with referrals for outpatient psychiatric care as well as grief counseling. Justification for Continued Inpatient Stay: Patient remains an elevated risk for self-harm by self neglect and will require further inpatient stabilization and preparation of a safe discharge plan. Moving patient to a less restrictive environment at this time may result in decompensation. (1) Current moderate episode of major depressive disorder Qualifiers: Major depression recurrence: single episode Qualified Code(s): F32.1 - Major depressive disorder, single episode, moderate
[2018-05-25] MEDS: Ibuprofen 600 MG Tablet PO PRN (15:54)
[2018-05-25] MEDS: Gabapentin 300 MG Capsule PO SCH (21:52)
[2018-05-25] MEDS: Melatonin 5 MG Tablet PO SCH (21:52)
[2018-05-25] MEDS: Mirtazapine 15 MG Tablet PO SCH (21:53)
[2018-05-26 05:49] VITALS: BP 129/67; PULSE 75; RESP 17; TEMP 97.8; O2SAT 96
[2018-05-26] MEDS: Senna/Docusate Sodium 8.6/50 MG Tablet PO SCH (08:49)
[2018-05-26] MEDS: Metoprolol Tartrate 25 MG Tablet PO SCH (08:49)
[2018-05-26] MEDS: Ibuprofen 600 MG Tablet PO PRN (08:54)
[2018-05-26] MEDS: Insulin Detemir Inj 1,000 UNIT/10 ML Vial SQ SCH (08:59)
[2018-05-26] MEDS ORDERED: Phenytoin Sodium 100 MG Capsule PO SCH (09:00)
--- NOTE | 2018-05-26 11:34 | P.DSPSY ---
Psychiatry Discharge Summary Inpatient Psychiatric care?: Yes Advance Directives: No Mental Health Advance Directive: No Health Care Proxy: No - Admission Admission Date: May 23, 2018 10:45 - Admission Diagnosis (1) Current moderate episode of major depressive disorder Code(s): F32.1 - Major depressive disorder, single episode, moderate (2) Dilantin toxicity Code(s): T42.0X1A - Poisoning by hydantoin derivatives, accidental ( unintentional), initial encounter Brief History: The patient is a 72-year-old man, , father of 3 kids, domiciled with his son in [place], no previous psychiatric history, no pre-suicide attempts, no previous psychiatric hospitalizations, denies the use of illegal drugs and alcohol, medical history of seizure disorder on Dilantin, diabetes mellitus, hypertension, congestive heart failure, coronary artery disease, hyperlipidemia and history of CVA, who presents to the emergency department under Silva act for the evaluation of suicidal ideation. The patient reports that earlier today he was feeling depressed and called the crisis line telling them that he wanted to jump in front of a truck or to throw himself in his house pool. He reports that his recently and he has been struggling with depression since that time. He also states that he takes Dilantin 3 times a day and recently his primary care provider increased him from 200-300 mg 3 times daily. His Dilantin level is currently elevated. He denies any intentional overdose. Initial Dilantin level 31.0, repeat 36.5. The patient was seen today for psychiatric reevaluation. Chart was reviewed. On my psychiatric evaluation today the patient reports that he feels much better today. However, he says that he has been very depressed since his 2 months ago. He says that he has been struggling with increased sense of sadness , poor self-esteem, difficulty sleeping at night, suicidal thoughts, daily tears , generalized pessimism, difficulties related with other people. At this moment the patient denies suicidal ideation, he says that yesterday he was just upset and acutely depressed, but today he has realized that he does not want to . Patient reports that maybe is better for him to be admitted in psychiatry and start treatment for depression. The patient is fully oriented x3, without attention deficit, no gross cognitive impairment. He is mostly logical, coherent and relevant. No agitation, no aggressive behavior present. The patient was medically stabilized and transferred to the medical psych unit on 05/23/2018. Patient was seen this morning for a reevaluation for the appropriateness of continuing the involuntary Silva act order. Patient continues to deny suicidal intent and reports that he called the crisis line because he wanted someone to talk to. He reports that he initially talked to some elders from his [employer] and was offered a chance to speak to members of his orthodox, "but I made the mistake of calling the crisis line instead." As for his depression, patient reports worsening sleep as a primary symptom as well as decreased interest to leave the house and go for walks as was usually has habit prior to his 's passing. He reports decreased energy and decreased appetite and he has experienced symptoms of hypnopompic hallucinations that have further caused him stress. We discussed risk benefits side effects and alternative treatments for depression and sleep disturbances and he chooses a trial of melatonin and mirtazapine. PPHx: No psychiatric history, no pre-suicide attempts, no previous hospitalization PMHx: seizure disorder on Dilantin, diabetes mellitus, hypertension, congestive heart failure, coronary artery disease, hyperlipidemia and history of CVA, Substance Hx: Denies the use of illegal drugs or alcohol Family Hx: No family psychiatric history Social Hx: Born and raised in [place], he lives with his son in [place], , unemployed, supported by social security Tobacco Use In Past 30 Days: No How Often Do You Have a Drink Containing Alcohol: Never Hospital Course: May 24, 2018: Initial treatment plan 1. Continue with admission to inpatient psychiatry at [facility]; convert to voluntary/competent legal status. 2. Routine unit precautions. 3. Comfort medications ordered for as needed treatment of constipation, heartburn, diarrhea, and mild pain. 4. Hydroxyzine 50mg po q6H prn anxiety/insomnia. 5. Discontinue Wellbutrin due to increased risk of seizures. 6. Start Remeron 15 mg at bedtime for treatment of depression. 7. Start melatonin 5 mg at bedtime for treatment of insomnia. 8. Patient will participate in the unit programming to include group therapies , milieu therapy and recreational therapies. 9. Discharge planning: The patient will need referrals for outpatient mental health to include psychiatric services and ideally group counseling for grief. Estimated LOS: 3 days May 25, 2018: Good response to treatment as the patient reports sleeping very well last night and tolerating medications. He continues to express sadness from grief of loss of and would benefit from a referral for counseling. Patient's Dilantin was rechecked today and it was 20.1 therefore he will likely be safe for discharge home tomorrow. Continue current inpatient psychiatric treatment plan, medications unchanged. Anticipate restart of Dilantin 200 mg twice a day per recommendation of neurology. Anticipate discharge tomorrow with referrals for outpatient psychiatric care as well as grief counseling. May 26, 2018: Patient was seen and examined on the unit by psychiatry and also visited by counselor. Psychotropic medications remained well tolerated. There was a good response to inpatient treatment plan noted by nursing and provider observations, and the patient reported improvements in mood, anxiety, and there was no evidence of any hallucinations, delusions, suicidality or homicidality at time of discharge. Psychiatric follow-up as arranged by counselor. Patient is also to follow up with primary care. I have counseled the patient to abstain from substances of abuse including cannabis and have counseled patient to return to the psychiatric emergency room for any concerning symptoms as part of a general safety plan. Weighing the acute, chronic, and protective factors and based on the available evidence, I labor custodian that the patient does not presently meet criteria for involuntary psychiatric hospitalization. Suicide risk assessment on day of discharge suggest lower than imminent risk from mental illness. Patient is denying suicidal ideation. There is no evidence of impairment in reality construction. We will bolster protective factors by relinking the patient with outpatient psychiatric services. There is no evidence of self-care deficit at time of discharge. There is no evidence to support an involuntary hospitalization therefore discharge order placed per patient's request. Patient has maximized benefit from this inpatient psychiatric hospital stay. Discharge medications included prescriptions for mirtazapine 50 mg take 1 by mouth at bedtime #30 refill 0, melatonin 5 mg take 1 by mouth at bedtime #30 refill 0. Dilantin 100 mg take 2 tabs by mouth twice a day #120 refill 0 The patient was seen by the neurologic retail sales vitamin consultant due to the patient's original admission for Dilantin toxicity. The recommendation was to follow Dilantin level daily until the level was below 20, then discharged home on Dilantin 200 mg twice a day. - Discharge Discharge Date: 05/26/18 - Discharge Diagnosis (1) Current moderate episode of major depressive disorder Code(s): F32.1 - Major depressive disorder, single episode, moderate Status: Acute Discharge Disposition: Home - Discharge Time > 30 minutes Mental Status Examination Appearance: Appropriate Consciousness: Alert Orientation: x4 Motor Activity: Normal gait Speech: Unremarkable Language: Adequate Fund of Knowledge: Adequate Attention and Concentration: Adequate Memory: Unremarkable Mood: Sad Affect: Sad Thought Process & Associations: Intact Thought Content: Appropriate Hallucination Type: None Delusion Type: None Suicidal Ideation: No Homicidal Ideation: No Insight: Fair Judgment: Adequate Discharge/Advance Care Plan - Results Vital Signs: Last Vital Signs Temp 97.8 F 05/26/18 05:48 Pulse 75 05/26/18 05:48 Resp 17 05/26/18 05:48 BP 129/67 05/26/18 05:48 Pulse Ox 96 05/26/18 05:48 Lab Results: Abnormal Lab Results 05/25/18 10:13 Phenytoin 20.7 H Laboratory Results Hemoglobin A1c 5.5 % (4.3-6.0) 05/24/18 07:38 Triglycerides 55 mg/dL (42-150) 05/24/18 07:38 Cholesterol 129 mg/dL (120-200) 05/24/18 07:38 LDL Cholesterol, Calc 59 mg/dL (0-99) 05/24/18 07:38 HDL Cholesterol 59.4 mg/dL (40.0-60.0) 05/24/18 07:38 Summary of Procedures: None ordered Pending Results: None - Medications Number of antipsychotic medications at discharge: 0 - Discharge Care Plan Goals to Promote Your Health: * To prevent worsening of your condition and complications * To maintain your health at the optimal level Directions to Meet Your Goals: Take your medications as prescribed Follow your dietary instruction Follow activity as directed Keep your appointments as scheduled Take your immunizations and boosters as scheduled If your symptoms worsen call your PCP, if no PCP go to Urgent Care Center or Emergency Room For 22/10 questions related to your inpatient stay or results of tests pending at discharge, please contact Dr. Rashad Aggarwal MD at Smoking is Dangerous to Your Health. Avoid second hand smoking (1) Current moderate episode of major depressive disorder Qualifiers: Major depression recurrence: single episode Qualified Code(s): F32.1 - Major depressive disorder, single episode, moderate (1) Current moderate episode of major depressive disorder Qualifiers: Major depression recurrence: single episode Qualified Code(s): F32.1 - Major depressive disorder, single episode, moderate
== END 2018-05-26 15:35 | disposition home or self-care (01) | DRG 885 ==
LOC: H4EA 10:45 → H260 05-24 12:58
PROVIDERS: ADMIT Psychiatry & Neurology Psychiatry; ATTEND Psychiatry & Neurology Psychiatry